=== PATIENT | male | born 2000 | race Caucasian/White ===

== ENCOUNTER 2022-05-05 12:30 | Outpatient (RCR) | payer OTHER, SELFPAY ==
--- NOTE | 2022-01-13 08:55 | PCPTNOTE ---
Patient did not show up for scheduled initial evaluation this date.
--- NOTE | 2022-01-13 10:49 | PCSTNOTE ---
Patient did not show up for scheduled appointment this date.
--- NOTE | 2022-02-06 09:01 | PTOPEVAL ---
Thank you for referring Jomar Villatoro to [facility].? He is scheduled to be seen for therapy? 1 x/week for 6 weeks. Please review, sign, date and return this plan of care ROMY. I agree with and certify that the following plan of care is medically necessary. Referring Physician Date Attending Provider: BENITA Blandon Outpatient Past Medical History Past Medical History Source of Past Medical History Family/Significant Other Neurological History Hx Other Neurological Disorders Yes: cerebral palsy Cardiovascular History Hx Other Cardiac Disorders Yes: cardiac murmur as child Respiratory History Hx COVID-19 Yes: ? not tested, in his household Gastrointestinal History Hx Gastrointestinal Disorders No Significant History Genitourinary History Hx Genitourinary Disorders No Significant History Musculoskeletal History Hx Other Musculoskeletal Disorders Yes: L femur fracture- casted Hematological History Hx Hematological Disorders No Significant History Endocrine History Hx Diabetes Yes: recent blood work for A1C testing for diabetes HEENT History Hx Eye Surgery Yes: as child Evaluation Information Diagnosis chronic encephalopathy with impaired functional balance and gait Onset Jul 2021 Subjective Information decline in his bed mobility, Query Text:As Reported By Patient/ transfer and walking over the Family past 2 years-- has not had therapy since finished school; working on getting him into a day program-- is on a waiting list for program; currently needs assist for in/ out bed, walking with max assist 50' max distance; has had multiple falls-- getting out of bed by himself and trying to walk without help; in the past month has had at least 3-4 falls; does not have a home exercise program for his legs; Mom wants him to be more indep with mobility and walking, not have any falls; Prior Level of Function Activity Level (Last 3 Months) Occupation disabled Activity of Daily Living Ability Dependent Indoor/Home Mobility Dependent Community Mobility Dependent Functional Cognition (Planning, Shopping Dependent , Taking Medications) Cooking No
--- NOTE | 2022-02-06 09:47 | OTOPEVAL ---
OCCUPATIONAL THERAPY INITIAL EVALUATION REPORT 02/06/22 Thank you for referring Jomar Villatoro to [facility].? The patient is scheduled to be seen for therapy? 1x/week for 6 weeks. Please review, sign, date and return this plan of care ROMY. I agree with and certify that the following plan of care is medically necessary. Referring Physician Date Referring Provider: Teodora Coy, PA *OT Outpatient Evaluation Start: 02/06/22 08:45 Therapy Assessment Status Assessment Status Assessment Status Evaluation Outpatient Past Medical History Past Medical History Source of Past Medical History Family/Significant Other Neurological History Hx Other Neurological Disorders Yes: cerebral palsy Musculoskeletal History Hx Fractures Yes: L femur fx Evaluation Information Problem Diagnosis chronic encephalopathy Onset Jul 2021 Subjective Information Pt's mom reports a significant Query Text:As Reported By Patient/ decline in ADLs, progressing Family to being dependent for all care. They are working on getting him into a day program , but is on a waiting list. Mom would like for him to help participate in more ADLs. He has had multiple falls at home , trying to get out of bed by himself. Prior Level of Function Activity Level (Last 3 Months) Occupation disabled Activity of Daily Living Ability Dependent Indoor/Home Mobility Dependent Community Mobility Dependent Stairs Ability Dependent Functional Cognition (Planning, Shopping Dependent , Taking Medications) Cooking No Cleaning No Laundry No Shopping No Driving No Home Setting Home Type Mobile Home Mobility Assistive Devices (Used Last 3 None Months) Comments Additional Prior Level of Function Mom reports ADL decline since Comments about September this year. She states that he no longer feeds himself. She takes care of all ADLs - bathing, dressing, and toileting. They do sponge baths in bed. Pain Assessment Timing of Pain Assessment Timing of Pain Assessment Assessment Pain Scale Pain Scale Used Delfina (FACES) Benjamin-Mena Alexander-Mena Pain Scale No Pain Pain Score Pain Score No Pain: Benjamin Mena Upper Extremity Range of Motion
--- NOTE | 2022-02-09 15:41 | BUSTOPEVAL1 ---
Evaluation Information Assessment Status Evaluation Reported Pain Level Pain Score 0: Self Report Assessment ST Clinical Summary The patient was seen for an attempted speech/ language evaluation this date. Patient did not directly participate in evaluation tasks; he did not follow directions for therapist, imitate words, or name people other than mom. Patient was also observed to say, hey. The mother reported that sometimes patient is coy and also will stop cooperating if he does not want to participate in tasks and this was evident today. He did make eye contact with this speech pathologist several times, especially when therapist used highly preferred words, such as macaroni and cheese. Mother reports patient had been using a PECS (Picture Exchange Communication System) board while at school at [employer] in [place], [place]. She stated that he graduated approximately two years ago, the week before he turned 20 years old, then COVID hit and he was unable to begin a day program. Mother reported that patient currently makes minimal attempts to communicate verbally and gesturally and they do not use the PECS communication system at home. She then admitted then she does generally know what he wants and what he is trying to communicate when he does speak or make eye contact. Therapist discussed with mother and Clyde, patient's top case assembler from school who is now his top case assembler as an adult, that patient needs a reason to communicate, that if she does everything for him or guesses at what he wants, he has no real reason to communicate. Therapist instructed her to create a need (such as offering food, but expecting him to request more, for example), or offering him two choices and them insist that he pick (such as showing him the box of macaroni and cheese and the bag of chicken nuggets and requesting him to indicate his desire by pointing or looking at the desired item. And as a third option to encourage communication, encouraging patient to respond to simple yes/no questions such as Do you want chicken for supper? and then model yes/no verbal or gestural responses and wait, but do not offer the food until he responds.
--- NOTE | 2022-02-24 14:52 | PCOTNOTE ---
Patient's mom called & cancelled patient's scheduled appointment this date. Did not state a reason.
--- NOTE | 2022-02-24 15:00 | PCPTNOTE ---
Patient called & cancelled scheduled appointment this date due to mom, his transportation being ill.
--- NOTE | 2022-03-04 14:12 | PCOTNOTE ---
Patient did not show up for scheduled appointment this date. Called patient's mom who states she thought the appointment was tomorrow. Reminded her of her appointment date/times next week.
--- NOTE | 2022-03-04 14:56 | PCPTNOTE ---
Patient did not show up for scheduled appointment this date. Patient's Mom told OT that she thought his appointment was tomorrow.
--- NOTE | 2022-03-04 16:08 | PCSTNOTE ---
Patient did not show up for scheduled appointment this date and did not call to cancel.
--- NOTE | 2022-03-12 15:12 | STOPDC ---
Assessment and note entered by Ashly Johnson RADIO CONTROL CRANE OPERATOR Evaluation Information Assessment Status Discharge Reported Pain Level Pain Score No Pain: Alexander Mena Pain Score 0: Self Report Assessment ST Clinical Summary TREATMENT SESSION AND DISCHARGE SUMMARY This patient has been seen for an initial Speech Therapy evaluation and two follow-up sessions. Patient presented non-verbal but able to produce approximations of only several words such as hi, hey, mom. During the initial evaluation, patient refused to participate in direct oral motor and speech tasks but did enjoy making eye contact with others and spontaneously repeating the words/ sounds that he does use in an attempt to gain attention but not in response to direct evaluation tasks. Mother voiced understanding that she knows patient is non-verbal and does not expect that to change. It was difficult to determine if mother wanted any information or advice from this speech pathologist or what her motivation was for bringing him to Speech Therapy; at our last session, she indicated that she really did not know why Speech Therapy was suggested. During the initial evaluation it was determined that mother understands everything patient is expressing whether it be pleasure or displeasure with foods or activities. Mother indicated that patient had used a [employer] system (Picture Exchange Communication System) at school but that she had not been given a copy of the pictures to use with him when he left school. Today, she indicated that in fact the school had sent home pictures and a strip board to create sentences but they do not use it. Additional questioning revealed that patient had never become independent with use of pictures and that he had not demonstrated enough skill or interest in using low or high technology (pictures /words/IPAD/computer) for communication. In the last session mother and Clyde were instructed in the use of yes/no questions to encourage a verbal or gestural response (as opposed to just a happy/unhappy facial expression or agitation), the use of either/or preference choices (such as pointing or reaching for the desired object of two objects/foods presented), and use of more/all
--- NOTE | 2022-03-19 14:30 | OTOPPROG ---
Addendum entered by PETER Khan CHT 03/19/22 15:29: Treatment Frequency and Duration: Changing to 0-1/week for 4 additional visits with next progress update on May 05 due to scheduling conflicts. Original Note: Assessment and note entered by PETER Khan CHT Evaluation Information Assessment Status Progress Diagnosis chronic encephalopathy Subjective Information Mom reports that he fed himself some oatmeal with a spoon. She states he fed himself about 25% of the meal. This is progress from being fed 100% of meals. She states that he is sitting up more while getting dressed vs doing all dressing in supine. She reports they are still doing sponge bathing in bed. Assessment OT Clinical Summary Andrei Hadley , is referred to outpatient OT with a decline in ADL independence due to deficits with ROM, strength, and functional coordination. We have been working on sitting balance and functional UE use. At this time he is making functional progress with helping mom more with ADLs. Continued skilled OT indicated to progress functional therapeutic exercises and activities to facilitate improved functional participation with ADLs. Plan of Care Interventions Therapeutic Exercise,Manual Therapy,Therapeutic Activities,Self-Care/Home Management,Other OT Services Indicated Yes Treatment Frequency and 1x/week for 4 weeks Duration These treatments will address the objective and functional deficits as defined above. The patient will be advanced safely and appropriately in order for the patient to progress towards his/her prior level of function. Additional exercises will be introduced and as well as a comprehensive home exercise program upon discharge, if needed, ?to ensure carryover of functional gains achieved in the clinic. This treatment plan has been reviewed and agreement upon by the patient.
--- NOTE | 2022-03-19 15:09 | PTOPPROG ---
Assessment and note entered by Gladys Garza, PT Evaluation Information Assessment Status Progress Subjective Information Mom reports: Andrei walked out the car and is walking more outdoors, have not walked in the house yet, mostly outside getting into the car; is doing better getting in/out of bed; Assessment PT Clinical Summary Andrei has received 4 PT sessions. Mom called/ canceled one and did not show for one appointment. He has decreased mental status, with inability to follow commands. Mom and caregiver present today. Compared to the initial evaluation: gait distance has increased, sitting balance improved; transfer supine/sit improved; Goals were partially achieved. Continue PT treatment, to increase mobility skills , further education to caregivers for HEP and decrease level of care required. Plan of Care Interventions Neuro Re-education,Patient/Caregiver Educati, Therapeutic Activities,Therapeutic Exercise PT Services Indicated Yes Treatment Frequency and 0-1x/wk for 4 more visits, to May 05-- due to Duration scheduling OT/PT times together These treatments will address the objective and functional deficits as defined above. The patient will be advanced safely and appropriately in order for the patient to progress towards his/her prior level of function. Additional exercises will be introduced and as well as a comprehensive home exercise program upon discharge, if needed, ?to ensure carryover of functional gains achieved in the clinic. This treatment plan has been reviewed and agreement upon by the patient.
--- NOTE | 2022-03-19 15:19 | PCPTNOTE ---
Progress done today, due to scheduling issues with family, PT/OT times together, could not complete 4 more sessions until May 05;
--- NOTE | 2022-04-14 12:45 | PCOTNOTE ---
Patient called & cancelled scheduled appointment this date due to not having a ride to therapy. Patient re-scheduled appointment.
--- NOTE | 2022-04-14 13:34 | PCPTNOTE ---
Patient called & cancelled scheduled appointment this date due to not having transportation
--- NOTE | 2022-04-21 08:24 | PCOTNOTE ---
Patient called & cancelled scheduled appointment this date due to patient's mother being sick and unable to bring patient to appointment.
--- NOTE | 2022-05-05 13:23 | PTOPPROG ---
Assessment and note entered by Gladys Garza, PT Evaluation Information Assessment Status Progress Subjective Information Mom reports: is walking short distances in the house; cannot walk any distances due to small house and no one to help her with him; she wants him to continue therapy; Assessment PT Clinical Summary Andrei has received 6 PT sessions. He has only had 1 treatment session since the last reeval. Mom with pt; he comes to dept in his w/c pushed by mom. She reports she has been working on standing with him and walking short distances, 5-10' in home. Compared to the last reevaluation: gait distance has increased from 150' to 300', with same amount of assist required and same pattern; improved sitting balance and posture at the edge of the mat and in his w/c; Goals were not achieved. Continue PT. Plan of Care Interventions Neuro Re-education,Patient/Caregiver Education, Therapeutic Activities,Therapeutic Exercise PT Services Indicated Yes Treatment Frequency and 1x/wk for 5 weeks Duration These treatments will address the objective and functional deficits as defined above. The patient will be advanced safely and appropriately in order for the patient to progress towards his/her prior level of function. Additional exercises will be introduced and as well as a comprehensive home exercise program upon discharge, if needed, ?to ensure carryover of functional gains achieved in the clinic. This treatment plan has been reviewed and agreement upon by the patient.
--- NOTE | 2022-05-05 13:28 | OTOPPROG ---
Assessment and note entered by Yumiko Gunderson OTR/L Evaluation Information Assessment Status Progress Assessment Status Progress Diagnosis chronic encephalopathy Subjective Information Mom reports that he fed himself a little more frequently with a spoon. She states he fed himself about 30% of the meals around 2x/week. She reports some days are better than others. This is progress from feeding oneself 25% of meal. Patient 's mom reports patient still having a tough time participating in dressing. Assessment OT Clinical Summary Andrei Hadley , is referred to outpatient OT for a re-evaluation with a decline in ADL independence due to deficits with ROM, strength, and functional coordination. In therapy we have worked on functional sitting balance while reaching for objects outside base of support and performing sheth pinching on different objects with R/L hand. At this time, he is making functional progress with helping mom more with ADLs including attempting to fed himself more. Continued skilled OT indicated to progress functional therapeutic exercises and activities to facilitate improved participation with functional ADLs and tasks. Plan of Care Interventions Therapeutic Exercise,Manual Therapy,Therapeutic Activities,Self-Care/Home Management,Other OT Services Indicated Yes Treatment Frequency and 1x/week for 5 weeks with PT Duration These treatments will address the objective and functional deficits as defined above. The patient will be advanced safely and appropriately in order for the patient to progress towards his/her prior level of function. Additional exercises will be introduced and as well as a comprehensive home exercise program upon discharge, if needed, ?to ensure carryover of functional gains achieved in the clinic. This treatment plan has been reviewed and agreement upon by the patient.
--- NOTE | 2022-05-12 11:32 | PCPTNOTE ---
This treatment is being continued on visit number [id number] . Please see documentation on both accounts to view progress. Completed interventions, outcomes, and problems have been marked as Inactive to facilitate the copying of the Care plan routine for recurring accounts.
--- NOTE | 2022-05-12 12:01 | PCOTNOTE ---
This treatment is being continued on visit number [id number]. Please see documentation on both accounts to view progress. Completed interventions, outcomes, and problems have been marked as Inactive to facilitate the copying of the Care plan routine for recurring accounts.
== END 2022-05-06 08:58 | disposition home or self-care (01) ==
LOC: ANHOT 12:30
PROVIDERS: PCP Physician Assistant; Referring Provider Physician Assistant; Visit Provider Physician Assistant
DX: G93.49 Other encephalopathy (principal); G80.8 Other cerebral palsy
CPT/HCPCS: 92507; 92523; 97110; 97116; 97161; 97165; 97530; 99199

== ENCOUNTER 2022-06-25 09:00 | Outpatient (RCR) | payer OTHER, SELFPAY ==
--- NOTE | 2022-05-12 11:44 | PCPTNOTE ---
This treatment is being continued from previous visit number [id number]. Please see documentation on both accounts to view progress. Completed interventions, outcomes, and problems have been marked as Inactive to facilitate the copying of the Care plan routine for recurring accounts.
--- NOTE | 2022-05-12 13:53 | PCOTNOTE ---
This treatment is being continued from previous visit number [id number]. Please see documentation on both accounts to view progress. Completed interventions, outcomes, and problems have been marked as Inactive to facilitate the copying of the Care plan routine for recurring accounts.
--- NOTE | 2022-05-22 11:25 | PCPTNOTE ---
Patient called & cancelled scheduled appointment this date due to not being able to make it.
--- NOTE | 2022-06-03 08:46 | PCOTNOTE ---
Patient's family called & cancelled scheduled appointment for 06/03/2022.
--- NOTE | 2022-06-11 10:48 | PCPTNOTE ---
pt mom called and canceled today's reeval;
--- NOTE | 2022-06-11 12:25 | PCOTNOTE ---
Patient's mom called and canceled today's re-eval.
--- NOTE | 2022-06-25 09:45 | OTOPDC ---
Assessment and note entered by TIARA Khan/Abiel, CHT Evaluation Information Assessment Status Discharge Diagnosis chronic encephalopathy Subjective Information Andrei has attended 9 outpatient sessions since his initial evaluation on 02/06/22. He is accompanied by his mom and caregiver. OT has been focusing on improving ADL participation as well as UE ROM, strength, and coordination. He has made progress with functional tip pinching in the left hand, but continues to use a raking grasp on the right. He has progressed to feeding himself 25-30% of meals inconsistently. He has not made much progress with participating in dressing, however his sitting balance and strength has improved so that they do more dressing in a sitting position vs supine. Reported Pain Level Pain Score No Pain: Alexander Mena Assessment OT Clinical Summary Andrei Hadley , presents today to outpatient OT his 3rd re-evaluation since beginning care . At this time he has reached a functional progress plateau with UE coordination, UE flexibility, grasp patterns, and ADL participation . Strongly encouraged mom to continue to work on UE HEP and to continue to have him participate in self-feeding and dressing. She is independent with all materials. Plan of Care OT Services Indicated No
--- NOTE | 2022-06-25 10:03 | PTOPDC ---
Assessment and note entered by Gladys Garza, PT Evaluation Information Assessment Status Discharge Subjective Information Mom and caregiver report: have been walking with Andrei short distance in home, from bed room to living room; have been doing leg exercises with him; he had an MRI of his spine and there is some compression and going to see a neuro dr; Reported Pain Level Pain Score No Pain: Benjamin Mena Pain Score No Pain: Benjamin Mena Assessment PT Clinical Summary Andrei has received a total of 8 PT sessions, from February 06, 2022 to today. There were multiple cancelations due to transportation issues, illness and difficulty scheduling pt. Compared to the last reeval on 05-05-22: bed mobility and chair/mat transfers are about the same; walking distance is less--was 300', now 30' and more assistance required and decreased posture with walking. Reviewed HEP with mom and caregiver; they are continuing to stand, transfer and walk with him, but only doing short distances in their home. Goals were partially met. Discontinue PT services, to continue with home program. Plan of Care PT Services Indicated No
== END 2022-06-25 13:53 | disposition home or self-care (01) ==
LOC: ANHOT 09:00
PROVIDERS: PCP Physician Assistant; Visit Provider Physician Assistant
DX: G93.49 Other encephalopathy (principal); G80.8 Other cerebral palsy
CPT/HCPCS: 97110; 97116; 97530

== ENCOUNTER 2022-10-01 17:43 | Emergency (ER) | payer OTHER, SELFPAY ==
[2022-10-01 17:57] VITALS: BP 96/74; PULSE 90; RESP 16; TEMP 37.2; O2SAT 100
[2022-10-01 17:58] VITALS: BP 96/74; PULSE 90; RESP 16; TEMP 37.2; O2SAT 100
--- NOTE | 2022-10-01 18:02 | ED.SKABFB ---
HPI - Skin/Abscess/Foreign Bdy General Chief complaint: Skin/Abscess/Foreign Body Stated complaint: Swelling/ Blisters in Legs Time Seen by Provider: 10/01/22 18:10 Source: family and RN notes reviewed Mode of arrival: ambulatory Limitations: no limitations History of Present Illness HPI narrative: 22-year-old male presents to the [facility] with parents. Parents have concern over redness, swelling and blisters to the right foot, right knee. Redness and swelling to the left foot as well as redness to the left knee. Noticed it this morning. Mom denies Patient has a history of nonverbal autistic, spinal stenosis, down syndrome. Patient is nonverbal. When right foot is touched he screams in pain. Father also states he is concerned about in on healing bedsore on his side or bottom MD complaint: abscess/boil, lesion and discoloration Onset (ago): hour(s) (this morning) Tetanus up to date: unsure Location: LLE, RLE, L foot and R foot Related Data Home Medications Medication Instructions Recorded Confirmed No Home Medications 10/01/22 10/01/22 Allergies Allergy/AdvReac Type Severity Reaction Status Date / Time No Known Allergies Allergy Unknown Verified 10/01/22 17:58 Review of Systems Review of Systems: All systems reviewed & are unremarkable except as noted in HPI and below Constitutional: Constitutional: Reports no additional constitutional complaints Eyes: Eyes: Reports no additional eye complaints ENT: Reports system reviewed and no additional complaints, except as documented Cardiovascular: Cardiovascular: Reports no additional cardiovascular complaints, Denies chest pain and Denies dyspnea Respiratory: Respiratory: Reports no additional respiratory complaints, Denies chest congestion, Denies cough and Denies dyspnea Gastrointestinal: Gastrointestinal: Reports no additional gastrointestinal complaints, Denies abdominal pain, Denies nausea and Denies vomiting Musculoskeletal: Musculoskeletal: Reports no additional musculoskeletal complaints Integumentary/Breasts: Skin/Breast: Reports as per HPI Neurologic: Reports system reviewed and no additional complaints, except as documented Psychiatric: Psychiatric: Reports no additional psychiatric complaints Allergic/Immunologic: Allergic/Immunologic: Reports no additional allergic/immunologic complaints [facility] Past Medical History Medical History (Updated 10/01/22 @ 18:43 by Joann Sofia APRN) Autism Cerebral palsy Down syndrome Spinal stenosis Comments At the time of my signature, I reviewed and agree with the nursing past medical, surgical, social, and family history. There is no relevant family history pertinent to the patient complaint. Exam Const: General: cooperative, healthy appearing, comfortable, no acute distress, well developed, alert and well nourished Nutritional Appearance: well nourished Orientation/consciousness: patient oriented x3 Limitations: no limitations HENMT: Head: normal to inspection Face/Nose/Sinus: Normal external nose present and Normal nares present Face and sinus: normal facial exam Eyes: General: appearance normal, both eyes and all related structures Alignment and Position: alignment normal Periorbital: periorbital findings normal Conjunctivae: conjunctivae normal Pupils: Equal, round and reactive pupils present EOM: EOMs intact bilaterally Neck: Neck: normal visual inspection and full ROM Chest: Chest palpation & inspection: normal inspection of the chest Resp: Effort & Inspection: normal respiratory effort and able to speak in complete sentences Cardio: Rate: regular rate Rhythm: regular rhythm Skin: General skin exam: normal color and no rashes or lesions noted Rashes: no rashes Other: Multiple swollen areas, red, warm to touch, blisters noted to his lower extremities. Full body images: 1. Large blister approximately 3 cm in diameter 2. Red area, warm, mildly swollen 3 cm in diameter 3.
--- NOTE | 2022-10-01 18:41 | PC.NURSE ---
[id number]- called [employer] # to report incident @ . Stated, they would send it to the field traffic investigator and have them call us back.
== END 2022-10-01 18:18 | disposition short-term general hospital (02) ==
PROVIDERS: Emergency Provider Nurse Practitioner; PCP Physician Assistant
DX: S80.821A Blister (nonthermal), right lower leg, initial encounter (principal); S90.821A Blister (nonthermal), right foot, initial encounter; L03.116 Cellulitis of left lower limb; L03.115 Cellulitis of right lower limb; X58.XXXA Exposure to other specified factors, initial encounter; F84.0 Autistic disorder; G80.9 Cerebral palsy, unspecified; Q90.9 Down syndrome, unspecified; M48.00 Spinal stenosis, site unspecified
CPT/HCPCS: 99212; G0463

== ENCOUNTER 2022-12-14 12:00 | Outpatient (RCR) | payer OTHER, SELFPAY ==
--- NOTE | 2022-10-13 15:22 | OTOPEVAL1 ---
Assessment and note entered by Yung Palacios, TIARA/Abiel, CHT Evaluation Information Assessment Status Evaluation Diagnosis Cerebral Palsy Subjective Information Patient presents today with his mom, Abigail. She reports that he has been feeding himself with built up utensils ( when he wants to ). She provides assist with bathing, dressing, and toileting. He uses a w/c for all mobility at home. He tends to fall out of bed and she reports he was on the floor this morning when she went in his room. They have a railing that isn't properly installed. She reports he is sitting up more compared to when they were at our clinic for therapy previously. Assessment OT Clinical Summary Patient referred to outpatient OT with dx of CP. He has been progressing with functional ROM and use of the UEs since his last time at our clinic. He continues to have gross weakness that limits functional use of bilateral UEs for ADLs. He will benefit from skilled OT to maximize functional strength and coordination of BUEs for ADLs. Plan of Care Interventions Therapeutic Exercise,Therapeutic Activities OT Services Indicated Yes Treatment Frequency and 1x/week for 4 weeks Duration These treatments will address the objective and functional deficits as defined above. The patient will be advanced safely and appropriately in order for the patient to progress towards his/her prior level of function. Additional exercises will be introduced and as well as a comprehensive home exercise program upon discharge, if needed, ?to ensure carryover of functional gains achieved in the clinic. This treatment plan has been reviewed and agreement upon by the patient.
--- NOTE | 2022-10-15 18:09 | PTOPEVAL1 ---
Assessment and note entered by Chucho De La Rosa, PT Evaluation Information Assessment Status Evaluation Diagnosis gait instability, cerebral palsy Subjective Information According to mother (patient is non-verbal) The surgeon wants to try more therapy before doing what sounds like a decompression of the cervical spine. Patient's mother also reports patient recently has a bout of cellulitis that limited the amount of pressure he could put through his legs. Assessment PT Clinical Summary Andrei is a 22 year old male coming into the clinic secondary to gait instability and cerebral palsy. The patient is according to family still far off from his baseline prior to a COVID infection, but OT and COVERING MACHINE TENDER who have worked with him before reports improvement over last time working with him. Physical therapy is going to work on standing endurance, stretching, strengthening, functional mobility, and walking. Plan of Care Interventions Gait Training,Hot Pack/Cold Pack,Manual Therapy, Neuro Re-education,Patient/Caregiver Education, Therapeutic Activities,Therapeutic Exercise Other Interventions lite gait, standing frame PT Services Indicated Yes Treatment Frequency and 1-2x/wk for 4 weeks Duration These treatments will address the objective and functional deficits as defined above. The patient will be advanced safely and appropriately in order for the patient to progress towards his/her prior level of function. Additional exercises will be introduced and as well as a comprehensive home exercise program upon discharge, if needed, ?to ensure carryover of functional gains achieved in the clinic. This treatment plan has been reviewed and agreement upon by the patient.
--- NOTE | 2022-11-12 10:29 | PCPTNOTE ---
Patient called & cancelled scheduled appointment this date due to can't make it.
--- NOTE | 2022-11-12 10:45 | PCOTNOTE ---
Patient's mom called & cancelled scheduled appointment this date. No reason given.
--- NOTE | 2022-11-16 13:28 | PTOPPROG ---
Assessment and note entered by Chucho De La Rosa, PT Evaluation Information Assessment Status Progress Diagnosis cervical spinal stenosis. gait instability, cerebral palsy Subjective Information Patient is non-verbal, patient's mother reports they have an appointment scheduled with the neurosurgeon Mid December, but are not sure if they will go through with the surgery. Otherwise patient's mother reports minimal changes. Assessment PT Clinical Summary Andrei is a 22 year old male coming into the clinic with a diagnosis of cervical spinal stenosis, gait instability, and cerebral palsy. Patient was evaluated on 10/13/22. Patient's main problem is participation/consistency. Patient did demonstrate MIN A for 1 out of 6 sit to stands transfers. and while walking in the lite gait with actually appear to be supporting himself without the harness for a few steps, but the majority of the time is Dependent with activity. Will try another group of therapy visits and see if 1/6 can be closer to 3/6. Plan of Care Interventions Gait Training,Manual Therapy,Neuro Re-education, Patient/Caregiver Education,Therapeutic Activities, Therapeutic Exercise Other Interventions lite gait, standing frame PT Services Indicated Yes Treatment Frequency and 1-2x/wk for 4 weeks Duration These treatments will address the objective and functional deficits as defined above. The patient will be advanced safely and appropriately in order for the patient to progress towards his/her prior level of function. Additional exercises will be introduced and as well as a comprehensive home exercise program upon discharge, if needed, ?to ensure carryover of functional gains achieved in the clinic. This treatment plan has been reviewed and agreement upon by the patient.
--- NOTE | 2022-11-20 13:11 | PCPTNOTE ---
Patient called & cancelled scheduled appointment this date due to Mom being sick.
--- NOTE | 2022-11-26 10:25 | OTOPPROG ---
Assessment and note entered by Yung Palacios, TIARA/Abiel, CHT Evaluation Information Assessment Status Progress Diagnosis Cerebral Palsy Subjective Information Patient presents today with his mom, Abigail. She reports that he helps with ADLs and feeding when he wants to . Participation in the clinic is sporadic. He does need encouragement to participate and is easily distracted. He is demonstrating improved fine motor tasks today and improved pinch with resistance. He did not want to participate in UE ROM assessment with functional reaching today. In past sessions he has been reaching as high as just above shoulder height to reach and grasp cones. Assessment OT Clinical Summary Patient referred to outpatient OT with dx of CP. OT re-evaluation today showing improved functional use of his hands for fine motor tasks. He continues to have gross weakness that limits funcitonal use of bilateral UEs for ADLs. He will benefit from skilled OT to maximize functional strength and coordination of BUEs for ADLs. Plan of Care Interventions Therapeutic Exercise,Therapeutic Activities OT Services Indicated Yes Treatment Frequency and 1x/week for 4 weeks Duration These treatments will address the objective and functional deficits as defined above. The patient will be advanced safely and appropriately in order for the patient to progress towards his/her prior level of function. Additional exercises will be introduced and as well as a comprehensive home exercise program upon discharge, if needed, ?to ensure carryover of functional gains achieved in the clinic. This treatment plan has been reviewed and agreement upon by the patient.
--- NOTE | 2022-11-30 13:38 | PCPTNOTE ---
Patient called & cancelled scheduled appointment this date due to transportation issues and mother not feeling well.
--- NOTE | 2022-12-02 13:13 | PCOTNOTE ---
Patient did not show up for scheduled appointment this date. Called patient's mom and she did not answer.
--- NOTE | 2022-12-14 11:54 | PTOPDC ---
Assessment and note entered by Chucho De La Rosa, PT Evaluation Information Assessment Status Discharge Diagnosis gait instability, cerebral palsy Subjective Information Patient's mother reports they have an appointment with the neurosurgeon for the middle of this month, December 29 and they think they will do the surgery followed by 2 weeks of Inpatient rehabilitation. Reported Pain Level Pain Score 2: FLACC Assessment PT Clinical Summary Andrei is a 22 year old male coming into the clinic with a diagnosis of cervical spinal stenosis, gait instability, and cerebral palsy. The patient was evaluated on 10/13/22 and has attended 7 visits with 3 cancelations. Patient did show increased participation with lite gait walking, but not make any significant functional mobility goals. Recommend doing the surgery and inpatient rehabilitation that the mother suggested and get new outpatient orders if he is showing some improvement. Discharged from outpatient physical therapy at this time. Plan of Care PT Services Indicated No
--- NOTE | 2022-12-14 12:35 | OTOPDC ---
Assessment and note entered by Yung Palacios, TIARA/Abiel, CHT Evaluation Information Assessment Status Discharge Diagnosis Cerebral Palsy Subjective Information Patient presents today with his mom, Abigail. She reports that he helps with ADLs and feeding when he wants to . Participation in the clinic is sporadic. He does need encouragement to participate and is easily distracted. In sessions this month he has been reaching and grasping various sized objects from chest height, rasing his shoulders to at least 90 degrees. Mom reports no ROM issues with dressing or bathing. He has been able to use both hands on cones for a cylindrical grasp and smaller objects such as marbles and cubes for palmar grasp. Abigail reports they have an appointment with a neurosurgeon later this month. Andrei is possibly having surgery for spinal stenosis. Assessment OT Clinical Summary Patient referred to outpatient OT with dx of CP and cervical spinal stenosis. Patient's participation fluctuates, but he has been able to complete grasping and fine motor tasks with bilateral UEs. No significant changes noted in the past month. Recommend they follow up with neurosurgery for further recommendations. D/C OT. Plan of Care OT Services Indicated No
== END 2022-12-16 12:27 | disposition home or self-care (01) ==
LOC: ANHOT 12:00
PROVIDERS: PCP Physician Assistant
DX: M48.02 Spinal stenosis, cervical region (principal); G80.8 Other cerebral palsy; R26.81 Unsteadiness on feet
CPT/HCPCS: 97110; 97161; 97166; 97530